=== PATIENT | female | born 1965 | race Caucasian/White ===

== ENCOUNTER 2018-12-02 09:45 | Emergency (ER) | payer OTHER ==
[2018-12-02 10:18] LABS: PTT 41.9 SEC (22.9-36.1); Prothrombin Time 13.5 SEC (12.0-14.7)
[2018-12-02 10:24] LABS: ALT (SGPT) 14 U/L (8-55); AST (SGOT) 14 U/L (5-34); Alkaline Phosphatase 96 U/L (40-150); Anion Gap 12 mmol/L (10-20); BUN (Urea Nitrogen) 21 mg/dL (9.8-20.1); Bilirubin, Total 0.3 mg/dL (0.2-1.2); Calc. Creatinine Clearance 0 mL/min (70-130); Calcium 9.7 mg/dL (7.8-10.44); Carbon Dioxide 28 mmol/L (22-29); Chloride 105 mmol/L (98-107); Estimated GFR-MDRD 68; Globulin 2.9 g/dL (2.4-3.5); Glucose 99 mg/dL (70-105); Potassium 3.7 mmol/L (3.5-5.1); Protein, Total 6.9 g/dL (6.0-8.3); Sodium 141 mmol/L (136-145)
[2018-12-02 10:26] LABS: Hemoglobin 13.7 g/dL (12.0-16.0); Mean Corpuscular HGB CONC 33.4 g/dL (32.0-36.0); Mean Corpuscular Hemoglobin 28.6 pg (27.0-31.0); Mean Corpuscular Volume 85.5 fL (78.0-98.0); Mean Platelet Volume 6.5 fL (7.4-10.4); Platelet Count 236 thou/uL (130-400); RBC Distribution Width 14.4 % (11.5-14.5); Red Blood Cell (RBC) Count 4.79 mill/uL (4.20-5.40); White Blood Cell (WBC) Count 6.4 thou/uL (4.8-10.8)
--- NOTE | 2018-12-02 10:44 | CT ---
CT HEAD NONCONTRAST: HISTORY: Altered mental status. COMPARISON: 01/25/2014. FINDINGS: There is no evidence of acute intracranial hemorrhage or infarct. Chronic ischemic small-vessel dise ase within the periventricular white matter of each cerebral hemisphere has progressed since the prev ious exam. There is no mass effect or shift of midline structures. Visualized paranasal sinuses rem ain well aerated. IMPRESSION: No acute intracranial abnormalities are demonstrated. Prominent chronic ischemic small-vessel diseas e. POS: [facility]
[2018-12-02 10:48] LABS: Eosinophils 7 % (0-10); Lymphocytes 49 % (21-51); MDiff Complete? YES; Monocytes 4 % (0-10); Neutrophil 35 % (42-75); Platelet Morphology Comment Appears Adequate; RBC Morphology Normal; Reactive Lymphocytes 5 % (0-10)
[2018-12-02 11:28] LABS: Bilirubin Negative (Negative); Blood, Urine Large (Negative); Clarity Cloudy (Clear); Glucose, Urine (Dipstick) Negative (Negative); Leukocyte Negative (Negative); Nitrite Positive (Negative); Protein, Urine (Dipstick) Trace mg/dL (Neg-Trace); Urobilinogen 0.2 mg/dL (0.2-1.0)
[2018-12-02 11:30] LABS: Specific Gravity, Urine 1.023 (1.002-1.036)
[2018-12-02 11:41] LABS: Bacteria/HPF 3+ HPF (None Seen); RBC/HPF 21-50 HPF (0-3); Squamous Epithelial 0-3 HPF (0-3)
[2018-12-02 11:42] LABS: Hyaline Casts/LPF NONE SEEN LPF (0-3 Hyaline)
[2018-12-02 11:47] LABS: Amphetamine Not Detected (NotDetected); Benzodiazepine Screen Not Detected (NotDetected); Cocaine Metabolite Screen Detected (NotDetected); Methadone Not Detected (NotDetected); Methamphetamine Not Detected (NotDetected); Opiate Screen Not Detected (NotDetected); Phencyclidine (PCP) Not Detected (NotDetected); THC/Cannabinoid Screen Not Detected (NotDetected); Tricyclic Screen Not Detected (NotDetected)
[2018-12-02 11:48] LABS: Barbiturates Screen Not Detected (NotDetected); Medtox Control Line Valid? VALID (VALID); Oxycodone Screen Not Detected (NotDetected)
[2018-12-02] MEDS ORDERED: Aspirin Chewable 81 MG TAB ONE (11:53)
[2018-12-02] MEDS ORDERED: cefTRIAXone\\ROCEPHIN 1 GM VIAL ONE (12:16)
[2018-12-02] MEDS ORDERED: Sodium Chloride 0.9% 100 ML ONE (12:16)
--- NOTE | 2018-12-02 12:38 | MRI ---
MRI BRAIN NONCONTRAST: DATE: 12/02/2018. HISTORY: A 53-year-old female with altered mental status and paresthesias. COMPARISON: No prior brain MRIs. FINDINGS: There are T2 hyperintense lesions in the cerebral white matter bilaterally. These include moderate s ized confluent such lesions in the biparietal periventricular white matter adjacent to the trigones a nd posterior bodies of the lateral ventricles, that extend laterally and superiorly into the menendez r adiata and centrum semiovale, right greater than left. These resemble Lima finger configuration on the sagittal T1WI. No definite involvement of the undersurface of the corpus callosum is noted, but the current study does not include a sagittal FLAIR sequence. Running in the anteroposterior dimens ion, a somewhat linear track of such T2 hyperintense signal abnormality follows the temporal horn of the left lateral ventricle. Other focal white matter lesions are smaller and discrete in the bilateral coronal radiata and especi ally centrum semiovale. A few of the lesions involve subcortical white matter. There is atrophy of the superior aspect of the cerebellar vermis, and superior aspects of the bilater al cerebellar hemispheres. The rest of the cerebellar hemispheres have normal volume. There is no a trophy of the brainstem. Ventricles are normal in size and configuration. No mass effect, midline s hift, restricted diffusion, extraaxial fluid collection, or recent or remote intraaxial hemorrhage. IMPRESSION: 1. Moderate degree of cerebral white matter lesions as described above. Although these could repres ent a moderate degree of chronic ischemic white matter changes due to microvascular atherosclerosis, some features of the lesions resemble those of multiple sclerosis (although it would be unusual for a patient to be diagnosed with multiple sclerosis at the age of 53 years). Recommend correlation with prior history and recommend neurology consultation. 2. Atrophy of the superior aspect of the cerebellar vermis and superior aspects of bilateral cerebel lar hemispheres. 3. No acute infarction or any other acute intracranial findings. SHEA Lopez POS: [facility]
== END 2018-12-02 13:15 | disposition home or self-care (01) ==
LOC: SCSER 09:45
DX: R20.2 Paresthesia of skin (principal); N39.0 Urinary tract infection, site not specified; F41.9 Anxiety disorder, unspecified; F17.210 Nicotine dependence, cigarettes, uncomplicated
CPT/HCPCS: 70450; 70551; 80053; 80306; 81003; 81015; 84484; 85025; 85610; 85730; 93005; 96365; J0696; J7050

== ENCOUNTER 2019-10-14 07:43 | Day surgery (SDC) | payer OTHER ==
[2019-10-13 08:39] VITALS: BMI 43.7
[2019-10-14] MEDS ORDERED: PROPOFOL 200 MG/20 ML VIAL ONE (09:41)
--- NOTE | 2019-10-14 11:45 | OP ---
DATE OF PROCEDURE: 10/14/2019 PROCEDURE PERFORMED: Colonoscopy. PREOPERATIVE DIAGNOSES: 1. Hematochezia. 2. Change in bowel habits. 3. History of adenomatous colon polyp. 4. She was recently diagnosed with bladder cancer. DESCRIPTION OF PROCEDURE: Informed consent was obtained from the patient. She was sedated with total intravenous anesthesia. Rectal exam was performed and was normal. The colonoscope was advanced easily to the terminal ileum. The mucosa of the terminal ileum was normal. The appendiceal orifice and ileocecal valve were clearly identified. The preparation quality was good. There was mild diverticulosis in the sigmoid colon. The remainder of the colonic mucosa was normal. Retroflexed views in the rectum were normal. IMPRESSION: 1. Mild sigmoid diverticulosis. 2. Otherwise normal colonoscopy to the terminal ileum. 3. The bleeding that she had was likely from small hemorrhoids. RECOMMENDATIONS: 1. Follow up in GI Clinic. 2. Repeat colonoscopy in 5 years for surveillance. Job ID: [id number] MTDD
== END 2019-10-14 10:43 | disposition home or self-care (01) ==
LOC: SDC 07:43
PROVIDERS: ATTEND Internal Medicine Gastroenterology
PROC: 0DJD8ZZ Inspection of Lower Intestinal Tract, Via Natural or Artificial Opening Endoscopic (ICD-10-PCS; principal; 2019-10-14)
DX: K57.31 Diverticulosis of large intestine without perforation or abscess with bleeding (principal); K21.9 Gastro-esophageal reflux disease without esophagitis; G35 Multiple sclerosis; C67.9 Malignant neoplasm of bladder, unspecified; E66.9 Obesity, unspecified; Z68.41 Body mass index [BMI] 40.0-44.9, adult; Z86.010 Personal history of colon polyps; Z79.899 Other long term (current) drug therapy; Z88.0 Allergy status to penicillin
CPT/HCPCS: J2704

== ENCOUNTER 2019-12-11 12:21 | Outpatient (CLI) | payer OTHER ==
--- NOTE | 2019-12-11 14:35 | MRI ---
MRI BRAIN WITH AND WITHOUT CONTRAST: DATE: 12/11/2019 HISTORY: 54-year-old female G \43.109, migraine with aura, not intractable, without status migrainosus. G35, multiple sclerosis. COMPARISON: 12/02/2018 TECHNIQUE: Multiplanar, multisequence MRI of the brain performed pre- and post-IV injection of gadolinium based contrast agent. FINDINGS: Again noted are the numerous bilateral cerebral white matter lesions, in the periventricular and deep cerebral white matter. The periventricular white matter confluent involvement involves mostly the posterior aspects, plus region around left temporal horn. On sagittal FLAIR sequence, some of the les ions have Lima's finger configurations. There is a small focus of signal abnormality along the inferior ventral aspect of the splenium of the corpus callosum. A few tiny scattered lesions along th e undersurface of the rostrum and anterior body of the corpus callosum a few millimeters in size each. Again noted is the atrophy of the superior vermis of the cerebellum, and superior aspects of the bila teral cerebellar hemispheres. Inferior portion of vermis and inferior aspects of the bilateral cerebral hemispheres are normal. No atrophy of the brainstem. No focal lesions and brachium pontis. V entricles are normal in size and configuration. No mass effect, midline shift, restricted diffusion, extra-axial fluid collection, recent or remote hemorrhage, or abnormal enhancement. Dural venous sinuses are patent. No interval change detected. IMPRESSION: 1. Moderate degree of supratentorial cerebral white matter lesions. Multiple sclerosis versus high-gr ivan chronic ischemic white matter changes due to microvascular atherosclerosis. The morphology favors the former. 2. Atrophy of the superior aspect of the cerebellum. 3. No interval change.
== END 2019-12-11 12:22 | disposition home or self-care (01) ==
LOC: SCSMRI 12:21
PROVIDERS: ATTEND Psychiatry & Neurology Neurology
DX: G43.109 Migraine with aura, not intractable, without status migrainosus (principal); G35 Multiple sclerosis; G93.9 Disorder of brain, unspecified; G31.9 Degenerative disease of nervous system, unspecified
CPT/HCPCS: 70553

== ENCOUNTER 2022-08-29 18:00 | Outpatient (CLI) | payer OTHER | END 2022-08-29 18:01 | disposition home or self-care (01) | LOC: SLEEPLAB 18:00 | PROVIDERS: ATTEND Psychiatry & Neurology Neurology | DX: G47.33 Obstructive sleep apnea (adult) (pediatric) (principal); R06.83 Snoring; G43.909 Migraine, unspecified, not intractable, without status migrainosus; G35 Multiple sclerosis; G47.00 Insomnia, unspecified; G47.10 Hypersomnia, unspecified | CPT/HCPCS: 95800 ==

== ENCOUNTER 2023-05-07 19:00 | Outpatient (CLI) | payer OTHER | END 2023-05-07 19:01 | disposition home or self-care (01) | LOC: SLEEPLAB 19:00 | PROVIDERS: ATTEND Psychiatry & Neurology Neurology | DX: G47.33 Obstructive sleep apnea (adult) (pediatric) (principal); R06.83 Snoring; G47.10 Hypersomnia, unspecified; G47.00 Insomnia, unspecified; G35 Multiple sclerosis | CPT/HCPCS: 95810 ==